=== PATIENT | male | born 1990 | race African-American/Black ===

== ENCOUNTER 2016-12-01 08:19 | Emergency (ER) | payer MEDICAID, OTHER ==
[~2016-12-01] VITALS: Ht 185.4 cm; Wt 79.0 kg
[2016-12-01] MEDS ORDERED: KETOROLAC 30MG/ML VIAL IV ONE (09:30)
[2016-12-01] MEDS ORDERED: CEFTRIAXONE SODIUM 250 MG/VIAL IM ONE (12:15)
[2016-12-01] MEDS ORDERED: CEFTRIAXONE 250 MG in DEXTROSE 5% WATER 25 ML IV ONE (12:15)
[2016-12-01] MEDS ORDERED: CEFTRIAXONE SODIUM 250 MG/VIAL ONE (12:21)
[2016-12-01] MEDS ORDERED: HYDROCODONE/ACETAMINOPHEN 5/325MG TABLET PO ONE (12:30)
[2016-12-01 12:32] VITALS: BP 121/61
== END 2016-12-01 14:38 | disposition home or self-care (01) ==
LOC: ER 09:00
DX: N45.1 Epididymitis (principal); F17.200 Nicotine dependence, unspecified, uncomplicated
CPT/HCPCS: 76870; 93976; 96365; 96375; 99284; J0696; J1885; J7060

== ENCOUNTER 2016-12-31 22:14 | Emergency (ER) | payer MEDICAID | END 2016-12-31 23:57 | disposition left against medical advice (07) | LOC: ER 22:14 | DX: Z53.21 Procedure and treatment not carried out due to patient leaving prior to being seen by health care provider (principal) ==

== ENCOUNTER 2021-09-05 01:11 | Emergency (ER) | payer MEDICAID, OTHER ==
[~2021-09-05] VITALS: Ht 185.4 cm; Wt 96.0 kg
[2021-09-05] MEDS ORDERED: PANTOPRAZOLE SODIUM 40 MG/VIAL IV STA (01:43)
[2021-09-05] MEDS ORDERED: ONDANSETRON HCL 4MG/2ML INJ IV STA (01:43)
[2021-09-05] MEDS ORDERED: MAGNESIUM/ALUMINUM HYDROXIDE/SIMETHICONE 30ML UDC PO STA (01:43)
[2021-09-05] MEDS ORDERED: SODIUM CHLORIDE 0.9% 1,000 ML IV ONE (01:45)
[2021-09-05] MEDS ORDERED: KETOROLAC 15MG/ML VIAL IV ONE (02:00)
[2021-09-05 02:23] LABS: BASOPHILS % 0.2 % (0.0-2.0); EOSINOPHILS % 0.1 % (0.0-5.0); HEMATOCRIT. 46.9 % (42.0-52.0); HEMOGLOBIN. 16.2 g/dL (14.0-18.0); LYMPHOCYTES % 7.4 % (20.0-50.0); MEAN CORPUSCULAR HEMOGLOBIN 29.8 pg (28.0-32.0); MEAN CORPUSCULAR VOLUME 86.3 fL (80.0-94.0); MEAN PLATELET VOLUME 9.4 fl (7.4-10.4); MONOCYTES % 3.4 % (2.0-8.0); NEUTROPHILS % 88.9 % (40.0-76.0); PLATELET 215 x1000/uL (130-400); RED BLOOD CELL COUNT 5.44 mill/uL (4.7-6.1); RED CELL DISTRIBUTION WIDTH 13.8 % (11.6-14.6)
[2021-09-05 02:28] LABS: CHLORIDE 106 mEq/L (98-107)
[2021-09-05 02:34] LABS: ETHANOL BLOOD < 10 mg/dL
[2021-09-05 03:46] LABS: CLARITY URINE CLEAR (CLEAR); COLOR URINE DARK YELLOW (YELLOW); KETONES URINE 3+ (NEGATIVE); LEUKOCYTE ESTERASE URINE NEGATIVE (NEGATIVE); NITRITE URINE NEGATIVE (NEGATIVE); OCCULT BLOOD URINE NEGATIVE (NEGATIVE); PH URINE 5.5 (4.5-8.0); PROTEIN URINE TRACE (NEGATIVE); SPECIFIC GRAVITY URINE 1.023 (1.005-1.030)
[2021-09-05 04:15] VITALS: BP 129/65
[2021-09-05 04:16] LABS: *AMPHETAMINES SCREEN URINE NEGATIVE (NEGATIVE)
[2021-09-05 04:17] LABS: *BARBITURATES SCREEN URINE NEGATIVE (NEGATIVE); *BENZODIAZEPINES SCREEN URINE NEGATIVE (NEGATIVE); *COCAINE SCREEN URINE NEGATIVE (NEGATIVE); METHADONE URINE SCREEN NEGATIVE (NEGATIVE); OPIATES URINE SCREEN PRESUMTIVE POSITIVE (NEGATIVE)
[2021-09-05 04:18] LABS: CANNABINOID URINE SCREEN PRESUMTIVE POSITIVE (NEGATIVE); PHENCYCLIDINE URINE SCREEN NEGATIVE (NEGATIVE)
[2021-09-05] MEDS ORDERED: IOHEXOL-300 100 ML BOTTLE ONE (04:18)
[2021-09-05] MEDS ORDERED: ONDA4TAB5 MT (05:13)
[2021-09-05] MEDS ORDERED: DICY10CA88 MT (05:13)
[2021-09-05] MEDS ORDERED: IBUP-2029 MT (05:13)
== END 2021-09-05 05:29 | disposition home or self-care (01) ==
LOC: ER 01:11
DX: R10.84 Generalized abdominal pain (principal); R11.2 Nausea with vomiting, unspecified; R19.7 Diarrhea, unspecified; I10 Essential (primary) hypertension
CPT/HCPCS: 36415; 74177; 76705; 80053; 80305; 80320; 81003; 82248; 83690; 85025; 96361; 96374; 96375; 99285; C9113; J1885; J2405; J7030; Q9967; G0480